=== PATIENT | male | born 1960 | race Caucasian/White ===

== ENCOUNTER 2023-01-03 11:00 | Outpatient (RCR) | payer BC, SELFPAY ==
[2022-12-13 09:48] VITALS: BP 142/97; PULSE 80; RESP 18; TEMP 36.3; BMI 28.7
--- NOTE | 2022-12-13 10:06 | HP.PCM_ITS ---
History of Present Illness Date of Service: 12/13/22 Chief Complaint: Left dorsal foot wound History of Wound: Patient is a 62-year-old male who presents with a left dorsal foot wound x2 just proximal to the base of the fourth and fifth digits. He states this wound has been recurrent for the past 6 months. Denies any trauma to the site. States that he thought a spider possibly bit him in the middle of the night. He was following with his primary care in [place] who prescribed Bactrim which did help, but the wound recurred and he was placed on a second course of Bactrim with noted improvement. When the wound recurred again he was referred to dermatology and placed on a 3-week course of Cipro with failure to progress in healing. He was then referred to the wound care center for further evaluation and placed on doxycycline 100 mg twice daily prior to evaluation in wound center. He states he is still currently taking the doxycycline. 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 Has switched the boots he wears with no improvement. Denies rubbing in shoe gear, walking barefoot, or snakebite. Denies N/V/F/chills. Denies further complaints today. ROS Constitutional Constitutional: Denies anorexia, chills or fever(s) Eyes Eyes: Denies blurry vision, change in vision or double vision ENT HEENT: Denies dysphagia, nasal congestion or sore throat Cardiovascular Cardiovascular: Denies chest pain, claudication or palpitations Respiratory/Chest Respiratory/Chest: Denies cough, shortness of breath at rest or wheezing Gastrointestinal Gastrointestinal: Denies abdominal pain, constipation, diarrhea, nausea or vomiting Genitourinary Genitourinary: Denies dysuria, hematuria, urinary frequency or urinary hesitancy Musculoskeletal Musculoskeletal: Denies joint pain, joint stiffness or joint swelling Integumentary Integumentary: Denies lesions, pruritus or rash Neurologic Neurologic: Denies dizziness, numbness or seizures Endocrine Endocrinology: Denies cold intolerance or heat intolerance Hematologic/Lymphatic Hematologic/Lymphatic: Denies easy bleeding or easy bruising Vital Signs Vital Signs Vital Signs: 12/13/22 09:48 Temperature 97.4 F L Temperature Source Temporal Pulse Rate 80 Respiratory Rate 18 Blood Pressure 142/97 H Blood Pressure Mean 112 Weight Weight: 80.739 kg Body Mass Index (BMI) 28.7 Physical Exam Const alert, oriented x3 and no apparent distress General Appearance: cooperative HEENT normocephalic Eyes General Eye: normal appearance of both eyes Neck General: normal visual inspection Lymph Lymphatic: no lymphadenopathy noted and no lymphedema noted Resp normal respiratory effort Cardio regular rate and regular rhythm Extremity normal capillary refill, no joint enlargement, no calf tenderness and no pedal edema Extremity Narrative: DP and PT pulses weakly palpable bilateral. Capillary fill time less than 5 seconds to the digits. Absence of hair growth to digits. Skin no rashes or lesions noted, skin turgor normal and no jaundice Wound Narrative: There are 2 small puncture type wounds to the distal forefoot of the left foot near the base of the fourth and fifth digits. There is some localized erythema about the wound margins. No purulent drainage, no malodor, no palpable fluctuance/bogginess, no visible abscess formation, no lymphangitic streaking. Neuro moves all extremities Debridement Note Debridement Note Wound debrided: Left dorsal foot x2 Laterality: Left Wound Grade/Stage: Lambert stage I Type of Debridement: Excisional debridement Anesthesia Used: 5% Lidocaine Gel Depth: Down to and including healthy tissue and in the subcutaneous layer Percentage of wound debrided: 100 Instrument Used: - (1 mm curette) Tissue Removed: Fibrous, devitalized subcutaneous, biofilm, slough Severity: Fat Layer Exposed Amount of bleeding with debridement: Mild Bleeding Controlled with: Compression and gauze Patient tolerated procedure: Patient tolerated procedure well Post-Debridement Measurements and Additional Note: Post-Debridement Measurements/Treatment CODI - Nurse 1 - General Ulcer Assessment Start: 12/13/22 09:45 Freq: Status: Active Protocol: MOOKIE Activity Type Activity Date Activity User E-sign Co-sign Detail Recorded Client Recorded Date Recorded By Document 12/13/22 09:48 AMANDA [id number] 12/13/22 10:00 AMANDA 12/13/22 09:48 - Today's Visit Information Type of service Initial Visit Arrival Mode Ambulatory Transfer Assistance None Patient Identification Verified (Name & Yes ) Patient Requires Transmission-Based No Precautions Safety Precautions NA Height and Weight Height 5 ft 6 in Weight 80.739 kg Weight in Pounds 178.0 lbs Body Mass Index (BMI) 28.7 BMI Classification Overweight BSA - Giovanni 1.90 Vital Signs Temperature (97.8 F-99.1 F) 97.4 F L Temperature Source Temporal Pulse Rate (60-100) 80 Respiratory Rate (12-18) 18 Blood Pressure (90/60-120/80) 142/97 H Blood Pressure Mean 112 History Since Last Visit- (Skip if this is Patient's initial visit) Have you changed medications since your No last visit? Any new allergies or adverse reactions No Had a fall/change in ADL's that may No increase risk of falls Signs or symptoms of abuse and/or No neglect since last visit Have you been in the hospital since your No last visit? Has dressing in place as prescribed No Has compression in place as prescribed No Has offloadiing in place as prescribed No Experienced any changes in pain level or No management Pain Scale: 0-10 Numeric Is Patient Pain Free? Yes WC - Nurse 1 - General Ulcer Measurement Start: 12/13/22 09:45 Freq: Status: Active Protocol: Activity Type Activity Date Activity User E-sign Co-sign Detail Recorded Client Recorded Date Recorded By Document 12/13/22 09:48 [address] [id number] 12/13/22 10:00 PL 12/13/22 09:48 Wound Center Nurse 1 #1 5th met head -Combined with other wound No -Current Size (cm) - Length 0.3 -Current Size (cm) - Width 0.3 -Current Size (cm) - Depth 0.1 -Total Square Cm 0.09 -Date of Last Picture (Recall this 12/13/22 field) -Photo Taken Yes -Epithelialization None Present -Tunneling No -Undermining/Tunneling No -Circular Undermining No -Classification - Thickness Full Thickness without Exposed Support Structure -Exudate Amt Medium -Exudate Type Serosanguineous -Granulation Amt None Present (0 %) -Granulation Quality [place] -Slough/Fibrin Yes -Necrosis Amt Large (67-100%) -Necrotic Tissue Type Adherent Slough -Texture (Jessica-wound Skin Appearance) No Abnormality -Moisture (Jessica-wound Skin Appearance) No Abnormality -Color (Jessica-wound Skin Appearance) No Abnormality -Temperature (Jessica-wound Skin No Abnormality Appearance) (Pt Warm) -Tenderness on Palpation (Jessica-wound No Skin Appearance) -Ulcer Cleansing Rinsed/ Irrigated with Saline -Foul Odor after Cleansing No -Anesthetic Used 5% Lidocaine Gel Assessment/Plan Assessment/Plan (1) Non-pressure chronic ulcer of other part of left foot with fat layer exposed: CODE(S): L97.522 - Non-pressure chronic ulcer of other part of left foot with fat layer exposed (2) Edema of left foot: CODE(S): R60.0 - Localized edema PLAN: Plan Patient seen and evaluated I reviewed his medical history and treatment course from his PCP. Has undergone 2 courses of Bactrim, 3-week treatment of Cipro, and currently on doxycycline. Wounds are noted to be recurrent to the dorsal left foot for the last 6 months. He denies pressure to the site, trauma, or known bites. Debridement was performed to both ulcerative sites as noted in the clinical panel above. Ulcerations located proximal to the base of the fourth and fifth toes. Proximal wound measures 0.2 cm x 0.2 cm x 0.5 cm in distal lateral measures 0.2 cm x 0.2 cm x 0.8 cm. Distal lateral does have a slight tunnel track at the 3 o'clock position of 0.4 cm. There is some slight erythema about the wounds. No expressible purulent drainage, no malodor, no visible abscess, no palpable fluctuance/bogginess, no lymphangitic streaking. Wounds dressed with Rekha and dry sterile dressing. He is to change the dressing daily. He was instructed to continue to finish out his oral doxycycline to completion. Discussed elevating the left lower extremity at times at rest to aid in edema control. Discussed proper diet to aid in wound healing with adequate protein intake. He does exhibit weakly palpable DP and PT pulses to bilateral lower extremities. I did discuss ordering venous studies today in addition to LEAS. These were ordered 12/13/2022, awaiting results. I do not feel vascular is impeding healing status. The following work up and care recommendations were made: Dressing: Rekha and dry sterile dressing, change daily Wash: Soap and water Tissue growth optimization: Rekha Offload: Dry dressing and to ensure site does not rub in shoe. Vascular: Weakly palpable DP and PT pulses. I did order LEAS and venous studies 12/13/2022. Edema: Slight nonpitting edema about the wound site discussed elevation of the leg to aid in edema control Infection: There is some minor erythema about the wound, currently on doxycycline will finish to completion. Pain: May take [id number] Tylenol as needed for discomfort Host factors: No known host factors I answered all the patient's questions. To return to the wound healing center in 1 week or call sooner if the patient has any questions or concerns.
[2022-12-20 11:00] VITALS: BP 108/73; PULSE 74; RESP 16; BMI 28.7
--- NOTE | 2022-12-20 11:09 | PCM.WC.PN ---
History of Present Illness Date of Service: 12/20/22 Chief Complaint: Left dorsal foot wound History of Wound: Patient is a 62-year-old male who presents with a left dorsal foot wound x2 just proximal to the base of the fourth and fifth digits. He states this wound has been recurrent for the past 6 months. Denies any trauma to the site. States that he thought a spider possibly bit him in the middle of the night. He was following with his primary care in [place] who prescribed Bactrim which did help, but the wound recurred and he was placed on a second course of Bactrim with noted improvement. When the wound recurred again he was referred to dermatology and placed on a 3-week course of Cipro with failure to progress in healing. He was then referred to the wound care center for further evaluation and placed on doxycycline 100 mg twice daily prior to evaluation in wound center. He states he is still currently taking the doxycycline. 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 Has switched the boots he wears with no improvement. Denies rubbing in shoe gear, walking barefoot, or snakebite. Denies N/V/F/chills. Denies further complaints today. Subjective Subjective This is a 62-year-old male who presents for follow-up to the wound care center for 2 dorsal left foot wounds at the base of the fourth and fifth toes. He states he has finished his oral antibiotic and is continue to dress the foot as instructed daily. He states that he feels the foot looks significantly better from his previous visit. Denies any constitutional symptoms. Denies further complaints today. Objective Data Objective Data Vital Signs: Vital Signs Temp Pulse Resp BP 97.4 F L 80 18 142/97 H 12/13/22 09:48 12/13/22 09:48 12/13/22 09:48 12/13/22 09:48 Weight: 80.739 kg Body Mass Index (BMI) 28.7 Physical Exam Const alert, oriented x3 and no apparent distress General Appearance: cooperative HEENT normocephalic Eyes General Eye: normal appearance of both eyes Neck General: normal visual inspection Lymph Lymphatic: no lymphadenopathy noted and no lymphedema noted Resp normal respiratory effort Cardio regular rate and regular rhythm Extremity normal capillary refill, no joint enlargement, no calf tenderness and no pedal edema Extremity Narrative: DP and PT pulses weakly palpable bilateral. Capillary fill time less than 5 seconds to the digits. Absence of hair growth to digits. Skin no rashes or lesions noted, skin turgor normal and no jaundice Wound Narrative: There are 2 small puncture type wounds to the distal forefoot of the left foot near the base of the fourth and fifth digits. There is some localized erythema about the wound margins -this is improving. No purulent drainage, no malodor, no palpable fluctuance/bogginess, no visible abscess formation, no lymphangitic streaking. Neuro moves all extremities Debridement Note Debridement Note Wound debrided: Left foot wound x2 Laterality: Left Wound Grade/Stage: Lambert stage I Type of Debridement: Excisional debridement Anesthesia Used: 5% Lidocaine Gel Depth: Down to and including healthy tissue and in the subcutaneous layer Percentage of wound debrided: 100 Instrument Used: - (1 mm curette) Tissue Removed: Fibrous, devitalized subcutaneous, biofilm, slough Severity: Fat Layer Exposed Amount of bleeding with debridement: Mild Bleeding Controlled with: Compression and gauze Patient tolerated procedure: Patient tolerated procedure well Post-Debridement Measurements and Additional Note: Post-Debridement Measurements/Treatment - Nurse 1 - General Ulcer Assessment Start: 12/13/22 09:45 Freq: Status: Active Protocol: MOOKIE Activity Type Activity Date Activity User E-sign Co-sign Detail Recorded Client Recorded Date Recorded By Document 12/13/22 09:48 AMANDA [id number] 12/13/22 10:00 AMANDA 12/13/22 09:48 - Today's Visit Information Type of service Initial Visit Arrival Mode Ambulatory Transfer Assistance None Patient Identification Verified (Name & Yes ) Patient Requires Transmission-Based No Precautions Safety Precautions NA Height and Weight Height 5 ft 6 in Weight 80.739 kg Weight in Pounds 178.0 lbs Body Mass Index (BMI) 28.7 BMI Classification Overweight BSA - Giovanni 1.90 Vital Signs Temperature (97.8 F-99.1 F) 97.4 F L Temperature Source Temporal Pulse Rate (60-100) 80 Respiratory Rate (12-18) 18 Blood Pressure (90/60-120/80) 142/97 H Blood Pressure Mean (mm Hg) 112 History Since Last Visit- (Skip if this is Patient's initial visit) Have you changed medications since your No last visit? Any new allergies or adverse reactions No Had a fall/change in ADL's that may No increase risk of falls Signs or symptoms of abuse and/or No neglect since last visit Have you been in the hospital since your No last visit? Has dressing in place as prescribed No Has compression in place as prescribed No Has offloadiing in place as prescribed No Experienced any changes in pain level or No management Pain Scale: 0-10 Numeric Is Patient Pain Free? Yes WC - Nurse 1 - General Ulcer Measurement Start: 12/13/22 09:45 Freq: Status: Active Protocol: Activity Type Activity Date Activity User E-sign Co-sign Detail Recorded Client Recorded Date Recorded By Document 12/13/22 09:48 PL [id number] 12/13/22 10:00 PL 12/13/22 09:48 Wound Center Nurse 1 #1 5th met head -Combined with other wound No -Current Size (cm) - Length 0.3 -Current Size (cm) - Width 0.3 -Current Size (cm) - Depth 0.1 -Total Square Cm 0.09 -Date of Last Picture (Recall this 12/13/22 field) -Photo Taken Yes -Epithelialization None Present -Tunneling No -Undermining/Tunneling No -Circular Undermining No -Classification - Thickness Full Thickness without Exposed Support Structure -Exudate Amt Medium -Exudate Type Serosanguineous -Granulation Amt None Present (0 %) -Granulation Quality [place] -Slough/Fibrin Yes -Necrosis Amt Large (67-100%) -Necrotic Tissue Type Adherent Slough -Texture (Jessica-wound Skin Appearance) No Abnormality -Moisture (Jessica-wound Skin Appearance) No Abnormality -Color (Jessica-wound Skin Appearance) No Abnormality -Temperature (Jessica-wound Skin No Abnormality Appearance) (Pt Warm) -Tenderness on Palpation (Jessica-wound No Skin Appearance) -Ulcer Cleansing Rinsed/ Irrigated with Saline -Foul Odor after Cleansing No -Anesthetic Used 5% Lidocaine Gel WC - Nurse 2 - General Ulcer CM Notes Start: 12/13/22 09:45 Freq: Status: Active Protocol: Activity Type Activity Date Activity User E-sign Co-sign Detail Recorded Client Recorded Date Recorded By Document 12/13/22 10:10 JASPAL [id number] 12/13/22 10:20 JASPAL 12/13/22 10:10 Wound Center Nurse 2 -Time 10:10 -Correct Patient Yes -Correct Side, Site, Position Yes -Correct Procedure Yes -Procedure Performed Yes -Type of Procedure Debridement -Clinical Debridement Subcutaneous -Tissue Removed Subcutaneous -Post Debridement (cm) - Length 0.2 -Post Debridement (cm) - Width 0.2 -Post Debridement (cm) - Depth 0.8 -Total Square (Post) (cm) 0.04 -Area of Debridement (cm) - Length 0.2 -Area of Debridement (cm) - Width 0.2 -Total Square (Area) (cm) 0.04 -Tunneling No -Undermining/Tunneling No -Circular Undermining No -Wound/Ulcer Outcome Not Healed -Ulcer Cleansing Rinsed/ Irrigated with Saline -Foul Odor after Cleansing No -Bioengineered Tissue No -Bleeding Controlled with Pressure -Treatment Response Procedure Tolerated Well -Offloading No -Debridement - Subq, 1st 20sq cm Yes Pain Scale: 0-10 Numeric Is Patient Pain Free? Yes - Nurse 3 - General Ulcer D/C NN Start: 12/13/22 09:45 Freq: Status: Active Protocol: Activity Type Activity Date Activity User E-sign Co-sign Detail Recorded Client Recorded Date Recorded By Document 12/13/22 10:29 [facility] [id number] 12/13/22 10:29 [facility] 12/13/22 10:29 Wound Care Center Nurse 3 #1 5th met head -Ulcer Cleansing Rinsed/ Irrigated with Saline -Foul Odor after Cleansing No -Primary Dressing Applied Promogran Rekha Matter -Primary Dressing Covered/Secured with Dry Gauze, Secured with Tape -Promogran Rekha Matter 1 Treatment Response Procedure Tolerated Well Pain Scale: 0-10 Numeric Is Patient Pain Free? Yes - Visit Discharge Discharge Condition Stable Ambulatory Status Ambulatory Transportation Private Auto Assessment/Plan Assessment/Plan (1) Non-pressure chronic ulcer of other part of left foot with fat layer exposed: CODE(S): L97.522 - Non-pressure chronic ulcer of other part of left foot with fat layer exposed (2) Edema of left foot: CODE(S): R60.0 - Localized edema PLAN: Plan Patient seen and evaluated I reviewed his medical history and treatment course from his PCP. Has undergone 2 courses of Bactrim, 3-week treatment of Cipro, and currently on doxycycline. Wounds are noted to be recurrent to the dorsal left foot for the last 6 months. He denies pressure to the site, trauma, or known bites. Debridement was performed to both ulcerative sites as noted in the clinical panel above. Ulcerations located proximal to the base of the fourth and fifth toes. Proximal wound measures 0.1 cm x 0.1 cm x 0.1 cm in distal lateral measures 0.1 cm x 0.1 cm x 0.1 cm. Erythema about the wounds has resolved today. No expressible purulent drainage, no malodor, no visible abscess, no palpable fluctuance/bogginess, no lymphangitic streaking. Wounds demonstrate improvement versus previous visit and reduction in size and granulating in. Wound is no longer draining and are nearly healed. Wounds dressed with hydrogel and dry sterile dressing. He is to change the dressing daily. He has finished his oral doxycycline to completion. Discussed elevating the left lower extremity at times at rest to aid in edema control. Discussed proper diet to aid in wound healing with adequate protein intake. He does exhibit weakly palpable DP and PT pulses to bilateral lower extremities. I did discuss ordering venous studies today in addition to LEAS. These were ordered 12/13/2022, awaiting results. I do not feel vascular is impeding healing status. The following work up and care recommendations were made: Dressing: Hydrogel and dry sterile dressing, change daily Wash: Soap and water Tissue growth optimization: Hydrogel Offload: Dry dressing and to ensure site does not rub in shoe. Vascular: Weakly palpable DP and PT pulses. I did order LEAS and venous studies 12/13/2022. Edema: Slight nonpitting edema about the wound site discussed elevation of the leg to aid in edema control Infection: There is some minor erythema about the wound, currently on doxycycline will finish to completion. Pain: May take [id number] Tylenol as needed for discomfort Host factors: No known host factors I answered all the patient's questions. To return to the wound healing center in 2 weeks or call sooner if the patient has any questions or concerns.
--- NOTE | 2022-12-20 12:44 | VDLE_ITS ---
Reason For Study: left foot ulcer RIGHT LEFT CFV is compressible, spontaneous, phasic, CFV is compressible, spontaneous, phasic, competent and demonstrates normal competent, and demonstrates normal augmentation. augmentation. FV is compressible, spontaneous, phasic, FV is compressible, spontaneous, phasic, competent and demonstrates normal competent and demonstrates normal augmentation. augmentation. POP V is compressible, spontaneous, phasic, POP V is compressible, spontaneous, phasic, competent and demonstrates normal competent and demonstrates normal augmentation. augmentation. T/P Trunk is compressible. T/P Trunk is compressible. PTV is compressible. PTV is compressible. RT PerV is compressible. LT PerV is compressible. SFJ is competent and measures .75 cm. SFJ is competent and measures .64 cm. GSV proximal thigh measures .39 x .4 cm. GSV proximal thigh measures .37 x .37 cm. GSV at knee measures .31 x .35 cm. GSV at knee measures .31 x .32 cm. GSV INCOMPETENT throughout for greater than GSV is competent throughout. 0.5 seconds. SSV proximal calf is competent and SSV proximal calf is competent and measures .24 x .29 cm. measures .28 x .35 cm. ASV proximal thigh is INCOMPETENT for greater than 0.5 seconds and measures .39 x .42 cm. Procedure This is a venous duplex using B-mode, color flow and spectral Doppler. Exam performed in department. The exam was diagnostic. VL/Venous Duplex US - Johnnie Extrem Interpretation Summary Deep veins of the lower extremities are bilaterally patent and compressible seg mentally. There is no evidence of deep vein thrombosis on either side. Valvular competence appears in tact within the proximal deep venous systems bilaterally. The great saphenous veins appear bila terally patent and compressible segmentally. Sapheno-femoral junctions are bilaterally competent . The right great saphenous vein appears segmentally incompetent. The left great saphenous vein a ppears segmentally competent. Small saphenous veins are patent and competent bilaterally. The acce ssory saphenous vein in the right proximal thigh is incompetent. Ordering Physician: Emilio Ortiz Referring Physician: Thanh Estevez Performed By: Macario Casey RVT
--- NOTE | 2022-12-20 12:44 | ART_ITS ---
Reason For Study: left foot ulcer Procedure A bilateral lower extremity continuous wave Doppler with analog waveform analysis,segmental pressures,and ankle brachial indexes without exercise. Left Segmental Pressures Left brachial= 114mmHg. Left posterior tibial artery = 141mmHg. Left dorsalis pedis artery = 135mmHg. Left digit = 99 mmHg. The left dorsalis pedis waveforms are triphasic. The left posterior tibial artery waveforms are triphasic. Right Segmental Pressures Right brachial= 114mmHg. Right posterior tibial artery = 150mmHg. Right dorsalis pedis artery = 125mmHg. Right digit = 98 mmHg. The right dorsalis pedis waveforms are triphasic. The right posterior tibial artery waveforms are triphasic. Indices The right ankle brachial index by the posterior tibial artery is 1.32. The right ankle brachial index by the dorsalis pedis is 1.1. The right digital-brachial index is .86. The left ankle brachial index by the posterior tibial artery is 1.24. The left ankle brachial index by the dorsalis pedis is 1.18. The left digital-brachial index is .99. VL/Lower Ext Art Exam w/o Exercis Interpretation Summary Triphasic Doppler waveforms are noted at ankle level bilaterally. Pulse-volume recordings appear satisfactory at all levels bilaterally. Resting ankle-brachial indices are norm al bilaterally. Digital-brachial indices are normal bilaterally. There is no evidence of significant arterial occlusive disease in the lower ext remities bilaterally. Ordering Physician: Emilio Ortiz Referring Physician: Thanh Estevez Performed By: Macario Casey, RVT
--- NOTE | 2023-01-03 11:06 | PN.PCM_ITS ---
History of Present Illness Date of Service: 01/03/23 Chief Complaint: Left dorsal foot wound History of Wound: Patient is a 62-year-old male who presents with a left dorsal foot wound x2 just proximal to the base of the fourth and fifth digits. He states this wound has been recurrent for the past 6 months. Denies any trauma to the site. States that he thought a spider possibly bit him in the middle of the night. He was following with his primary care in [place] who prescribed Bactrim which did help, but the wound recurred and he was placed on a second course of Bactrim with noted improvement. When the wound recurred again he was referred to dermatology and placed on a 3-week course of Cipro with failure to progress in healing. He was then referred to the wound care center for further evaluation and placed on doxycycline 100 mg twice daily prior to evaluation in wound center. He states he is still currently taking the doxycycline. 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 Has switched the boots he wears with no improvement. Denies rubbing in shoe gear, walking barefoot, or snakebite. Denies N/V/F/chills. Denies further complaints today. Subjective Subjective This is a 62-year-old male who presents for follow-up to the wound care center for 2 dorsal left foot wounds at the base of the fourth and fifth toes.? He states he has finished his oral antibiotic and is continue to dress the foot as instructed daily.? He states that he feels the foot continues to look better from his previous visit.? Denies any constitutional symptoms.? Denies further complaints today. Objective Data Objective Data Vital Signs: Vital Signs Temp Pulse Resp BP O2 Del Method 97.4 F L 74 16 108/73 Room Air 12/13/22 09:48 12/20/22 11:00 12/20/22 11:00 12/20/22 11:00 12/20/22 11:00 Oxygen Delivery Method Room Air Weight: 80.739 kg Body Mass Index (BMI) 28.7 Physical Exam Const alert, oriented x3 and no apparent distress General Appearance: cooperative HEENT normocephalic Eyes General Eye: normal appearance of both eyes Neck General: normal visual inspection Lymph Lymphatic: no lymphadenopathy noted and no lymphedema noted Resp normal respiratory effort Cardio regular rate and regular rhythm Extremity normal capillary refill, no joint enlargement, no calf tenderness and no pedal edema Extremity Narrative: DP and PT pulses weakly palpable bilateral. Capillary fill time less than 5 seconds to the digits. Absence of hair growth to digits. Skin no rashes or lesions noted, skin turgor normal and no jaundice Wound Narrative: There are 2 small puncture type wounds to the distal forefoot of the left foot near the base of the fourth and fifth digits. There is some localized erythema about the wound margins -this is improving. No purulent drainage, no malodor, no palpable fluctuance/bogginess, no visible abscess formation, no lymphangitic streaking. Neuro moves all extremities Debridement Note Debridement Note No debridement was completed: No debridement was completed today Post-Debridement Measurements and Additional Note: Post-Debridement Measurements/Treatment - Nurse 1 - General Ulcer Assessment Start: 12/13/22 09:45 Freq: Status: Active Protocol: MOOKIE Activity Type Activity Date Activity User E-sign Co-sign Detail Recorded Client Recorded Date Recorded By Document 12/13/22 09:48 [id number] 12/13/22 10:00 PL Document 12/20/22 11:00 [facility] [id number] 12/20/22 11:10 [facility] 12/13/22 12/20/22 09:48 11:00 - Today's Visit Information Type of service Initial Visit Follow-up Visit (Physician/AIRLINE TICKET AGENT ) Arrival Mode Ambulatory Ambulatory Transfer Assistance None None Patient Identification Verified (Name & Yes Yes ) Patient Requires Transmission-Based No No Precautions Safety Precautions NA Height and Weight Height 5 ft 6 in Weight 80.739 kg Weight in Pounds 178.0 lbs Body Mass Index (BMI) 28.7 28.7 BMI Classification Overweight Overweight BSA - Giovanni 1.90 Vital Signs Temperature (97.8 F-99.1 F) 97.4 F L Temperature Source Temporal Pulse Rate (60-100) 80 74 Pulse Location Monitor Respiratory Rate (12-18) 18 16 Respiratory rate source Observation Oxygen Delivery Method Room Air Blood Pressure (90/60-120/80) 142/97 H 108/73 Blood Pressure Mean (mm Hg) 112 84 Source Monitor Position Sitting Blood Pressure Location Left Arm History Since Last Visit- (Skip if this is Patient's initial visit) Have you changed medications since your No No last visit? Any new allergies or adverse reactions No No Had a fall/change in ADL's that may No No increase risk of falls Signs or symptoms of abuse and/or No No neglect since last visit Have you been in the hospital since your No No last visit? Has dressing in place as prescribed No No Has compression in place as prescribed No N/A Has offloadiing in place as prescribed No N/A Experienced any changes in pain level or No No management Left Footwear Regular Shoe Right Footwear Regular Shoe Pain Scale: 0-10 Numeric Is Patient Pain Free? Yes Yes WC - Nurse 1 - General Ulcer Measurement Start: 12/13/22 09:45 Freq: Status: Active Protocol: Activity Type Activity Date Activity User E-sign Co-sign Detail Recorded Client Recorded Date Recorded By Document 12/13/22 09:48 PL [id number] 12/13/22 10:00 PL Document 12/20/22 11:00 [facility] [id number] 12/20/22 11:10 BM 12/13/22 12/20/22 09:48 11:00 Wound Center Nurse 1 #1 5th met head -Combined with other wound No No -Current Size (cm) - Length 0.3 0.1 -Current Size (cm) - Width 0.3 0.1 -Current Size (cm) - Depth 0.1 0.1 -Total Square Cm 0.09 0.01 -Date of Last Picture (Recall this 12/13/22 12/20/22 field) -Photo Taken Yes Yes -Epithelialization None Present Large 67-100% -Tunneling No No -Undermining/Tunneling No No -Circular Undermining No No -Classification - Thickness Full Thickness without Exposed Support Structure -Exudate Amt Medium None Present -Exudate Type Serosanguineous -Granulation Amt None Present (0 %) -Granulation Quality [place] -Slough/Fibrin Yes -Necrosis Amt Large (67-100%) -Necrotic Tissue Type Adherent Slough -Texture (Jessica-wound Skin Appearance) No Abnormality Assessed, Scarring -Moisture (Jessica-wound Skin Appearance) No Abnormality Assessed -Color (Jessica-wound Skin Appearance) No Abnormality Assessed -Temperature (Jessica-wound Skin No Abnormality No Abnormality Appearance) (Pt Warm) (Pt Warm) -Tenderness on Palpation (Jessica-wound No No Skin Appearance) -Ulcer Cleansing Rinsed/ Soap and Water Irrigated with Saline -Foul Odor after Cleansing No No -Anesthetic Used 5% Lidocaine 5% Lidocaine Gel Gel WC - Nurse 2 - General Ulcer CM Notes Start: 12/13/22 09:45 Freq: Status: Active Protocol: Activity Type Activity Date Activity User E-sign Co-sign Detail Recorded Client Recorded Date Recorded By Document 12/13/22 10:10 [id number] 12/13/22 10:20 Document 12/20/22 12:13 PL [id number] 12/20/22 12:13 PL 12/13/22 12/20/22 10:10 12:13 Wound Center Nurse 2 #1 5th met head -Time 10:10 -Correct Patient Yes -Correct Side, Site, Position Yes -Correct Procedure Yes -Procedure Performed Yes No -Type of Procedure Debridement -Clinical Debridement Subcutaneous -Tissue Removed Subcutaneous -Post Debridement (cm) - Length 0.2 -Post Debridement (cm) - Width 0.2 -Post Debridement (cm) - Depth 0.8 -Total Square (Post) (cm) 0.04 -Area of Debridement (cm) - Length 0.2 -Area of Debridement (cm) - Width 0.2 -Total Square (Area) (cm) 0.04 -Tunneling No -Undermining/Tunneling No -Circular Undermining No -Wound/Ulcer Outcome Not Healed Healed- Epithelialized -Ulcer Cleansing Rinsed/ Irrigated with Saline -Foul Odor after Cleansing No -Bioengineered Tissue No -Bleeding Controlled with Pressure -Treatment Response Procedure Tolerated Well -Offloading No -Debridement - Subq, 1st 20sq cm Yes Pain Scale: 0-10 Numeric Is Patient Pain Free? Yes Yes - Nurse 3 - General Ulcer D/C NN Start: 12/13/22 09:45 Freq: Status: Active Protocol: Activity Type Activity Date Activity User E-sign Co-sign Detail Recorded Client Recorded Date Recorded By Document 12/13/22 10:29 [facility] [id number] 12/13/22 10:29 [facility] Document 12/20/22 11:35 [facility] [id number] 12/20/22 11:36 [facility] 12/13/22 12/20/22 10:29 11:35 Wound Care Center Nurse 3 #1 5th met head -Ulcer Cleansing Rinsed/ Rinsed/ Irrigated with Irrigated with Saline Saline -Foul Odor after Cleansing No No -Primary Dressing Applied Promogran C Hydrogel ($) Rekha Matter -Primary Dressing Covered/Secured with Dry Gauze, Dry Gauze, Secured with Secured with Tape Tape -Promogran Rekha Matter 1 Treatment Response Procedure Procedure Tolerated Well Tolerated Well Pain Scale: 0-10 Numeric Is Patient Pain Free? 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 Has undergone 2 courses of Bactrim, 3-week treatment of Cipro, and currently on doxycycline. Wounds are noted to be recurrent to the dorsal left foot for the last 6 months. He denies pressure to the site, trauma, or known bites. Debridement was performed to both ulcerative sites as noted in the clinical panel above. Ulcerations located proximal to the base of the fourth and fifth toes. Proximal wound measures 0.1 cm x 0.1 cm x 0.1 cm in distal lateral measures 0.1 cm x 0.1 cm x 0.1 cm. There is some epithelialization across the sites today. No expressible purulent drainage, no malodor, no visible abscess, no palpable fluctuance/bogginess, no lymphangitic streaking. Wounds demonstrate improvement versus previous visit and reduction in size and granulating in with some epithelialization. Wound is no longer draining and are nearly healed. Wounds dressed with dry sterile dressing. He is to change the dressing daily. He has finished his oral doxycycline to completion. Discussed elevating the left lower extremity at times at rest to aid in edema control. Discussed proper diet to aid in wound healing with adequate protein intake. He does exhibit weakly palpable DP and PT pulses to bilateral lower extremities. Venous studies and LEAS were performed 12/20/2022.venous studies demonstrate deep veins of the lower extremities bilaterally patent and compressible segmentally with no evidence of DVT. Great saphenous and small saphenous competent bilaterally. The accessory saphenous vein in the right proximal thigh is incompetent. Arterial studies demonstrate triphasic Doppler waveforms noted at the ankle level bilaterally. PV are satisfactory in all levels bilaterally. Resting KORTNEY indices normal bilaterally. Digital brachial indices normal bilaterally. No evidence of arterial occlusive disease in the lower extremities bilaterally. The following work up and care recommendations were made: Dressing: dry sterile dressing, change daily Wash: Soap and water Tissue growth optimization: None Offload: Dry dressing and to ensure site does not rub in shoe. Vascular: Weakly palpable DP and PT pulses. LEAS and venous studies 12/20/2022. No evidence of arterial occlusive disease bilaterally. Edema: Slight nonpitting edema about the wound site discussed elevation of the leg to aid in edema control Infection: No signs of infection. Pain: May take [id number] Tylenol as needed for discomfort Host factors: No known host factors I answered all the patient's questions. To return to the wound healing center in 2 weeks or call sooner if the patient has any questions or concerns.
== END 2023-01-09 23:59 | disposition home or self-care (01) ==
LOC: WC 11:00
PROVIDERS: PCP Family Medicine; Referring Provider Family Medicine; Visit Provider Student in an Organized Health Care Education/Training Program
DX: L97.522 Non-pressure chronic ulcer of other part of left foot with fat layer exposed (principal); R60.0 Localized edema
CPT/HCPCS: 11042; 93923; 93970; 99213; 99214; G0463

== ENCOUNTER 2023-01-31 10:45 | Outpatient (RCR) | payer BC, SELFPAY ==
[2023-01-10 00:10] VITALS: BP 108/73; PULSE 74; RESP 16; TEMP 36.3; BMI 28.7
--- NOTE | 2023-01-17 10:55 | PCM.WC.PN ---
History of Present Illness Date of Service: 01/17/23 Chief Complaint: Left dorsal foot wound History of Wound: Patient is a 62-year-old male who presents with a left dorsal foot wound x2 just proximal to the base of the fourth and fifth digits. He states this wound has been recurrent for the past 6 months. Denies any trauma to the site. States that he thought a spider possibly bit him in the middle of the night. He was following with his primary care in [place] who prescribed Bactrim which did help, but the wound recurred and he was placed on a second course of Bactrim with noted improvement. When the wound recurred again he was referred to dermatology and placed on a 3-week course of Cipro with failure to progress in healing. He was then referred to the wound care center for further evaluation and placed on doxycycline 100 mg twice daily prior to evaluation in wound center. He states he is still currently taking the doxycycline. 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 Has switched the boots he wears with no improvement. Denies rubbing in shoe gear, walking barefoot, or snakebite. Denies N/V/F/chills. Denies further complaints today. Subjective Subjective This is a 62-year-old male who presents for follow-up to the wound care center for 2 dorsal left foot wounds at the base of the fourth and fifth toes.? He states continues to dress the foot as instructed daily.? He states that he feels the foot continues to look better from his previous visit.? Denies any constitutional symptoms.? Denies further complaints today. Objective Data Objective Data Vital Signs: Vital Signs Temp Pulse Resp BP 97.4 F L 74 16 108/73 01/10/23 00:10 01/10/23 00:10 01/10/23 00:10 01/10/23 00:10 Weight: 80.739 kg Body Mass Index (BMI) 28.7 Physical Exam Const alert, oriented x3 and no apparent distress General Appearance: cooperative HEENT normocephalic Eyes General Eye: normal appearance of both eyes Neck General: normal visual inspection Lymph Lymphatic: no lymphadenopathy noted and no lymphedema noted Resp normal respiratory effort Cardio regular rate and regular rhythm Extremity normal capillary refill, no joint enlargement, no calf tenderness and no pedal edema Extremity Narrative: DP and PT pulses weakly palpable bilateral.? Capillary fill time less than 5 seconds to the digits.? Absence of hair growth to digits. Skin no rashes or lesions noted, skin turgor normal and no jaundice Wound Narrative: There are 2 small puncture type wounds to the distal forefoot of the left foot near the base of the fourth and fifth digits.? There is some localized erythema about the wound margins -this is improving.? No purulent drainage, no malodor, no palpable fluctuance/bogginess, no visible abscess formation, no lymphangitic streaking. Neuro moves all extremities Debridement Note Debridement Note No debridement was completed: No debridement was completed today Assessment/Plan Assessment/Plan (1) Edema of left foot: CODE(S): R60.0 - Localized edema (2) Non-pressure chronic ulcer of other part of left foot with fat layer exposed: CODE(S): L97.522 - Non-pressure chronic ulcer of other part of left foot with fat layer exposed PLAN: Plan Patient seen and evaluated I reviewed his medical history and treatment course from his PCP.? Has undergone 2 courses of Bactrim, 3-week treatment of Cipro, and currently on doxycycline.? Wounds are noted to be recurrent to the dorsal left foot for the last 6 months.? He denies pressure to the site, trauma, or known bites. No Debridement was performed to ulcerative site as noted in the clinical panel above.? Ulcerations located proximal to the base of the fourth and fifth toes.? Proximal wound measures 0.1 cm x 0.1 cm x 0.1 cm in distal lateral is healed.? There is some epithelialization across the proximal site today.? No expressible purulent drainage, no malodor, no visible abscess, no palpable fluctuance/bogginess, no lymphangitic streaking. Wounds demonstrate improvement versus previous visit and reduction in size and granulating in with some epithelialization.? Wound is no longer draining and are nearly healed. Wound dressed with hydrogel and dry sterile dressing.? He is to change the dressing daily.? He has finished his oral doxycycline to completion. Discussed elevating the left lower extremity at times at rest to aid in edema control. Discussed proper diet to aid in wound healing with adequate protein intake. He does exhibit weakly palpable DP and PT pulses to bilateral lower extremities.? Venous studies and LEAS were performed 12/20/2022.venous studies demonstrate deep veins of the lower extremities bilaterally patent and compressible segmentally with no evidence of DVT.? Great saphenous and small saphenous competent bilaterally.? The accessory saphenous vein in the right proximal thigh is incompetent.? Arterial studies demonstrate triphasic Doppler waveforms noted at the ankle level bilaterally.? PV are satisfactory in all levels bilaterally.? Resting KORTNEY indices normal bilaterally.? Digital brachial indices normal bilaterally.? No evidence of arterial occlusive disease in the lower extremities bilaterally. The following work up and care recommendations were made: Dressing: Hydrogel and dry sterile dressing, change daily Wash: Soap and water Tissue growth optimization: Hydrogel Offload: Dry dressing and to ensure site does not rub in shoe. Vascular: Weakly palpable DP and PT pulses. LEAS and venous studies 12/20/2022.? No evidence of arterial occlusive disease bilaterally. Edema: Slight nonpitting edema about the wound site discussed elevation of the leg to aid in edema control Infection: No signs of infection. Pain: May take [id number] Tylenol as needed for discomfort Host factors: No known host factors ? I answered all the patient's questions.? To return to the wound healing center in 2 weeks or call sooner if the patient has any questions or concerns.
[2023-01-17 11:00] VITALS: BP 155/54; PULSE 74; RESP 18; TEMP 36.1; BMI 28.7
--- NOTE | 2023-01-31 11:11 | PN.PCM_ITS ---
History of Present Illness Date of Service: 01/31/23 Chief Complaint: Left dorsal foot wound History of Wound: Patient is a 62-year-old male who presents with a left dorsal foot wound x2 just proximal to the base of the fourth and fifth digits. He states this wound has been recurrent for the past 6 months. Denies any trauma to the site. States that he thought a spider possibly bit him in the middle of the night. He was following with his primary care in [place] who prescribed Bactrim which did help, but the wound recurred and he was placed on a second course of Bactrim with noted improvement. When the wound recurred again he was referred to dermatology and placed on a 3-week course of Cipro with failure to progress in healing. He was then referred to the wound care center for further evaluation and placed on doxycycline 100 mg twice daily prior to evaluation in wound center. He states he is still currently taking the doxycycline. 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 Has switched the boots he wears with no improvement. Denies rubbing in shoe gear, walking barefoot, or snakebite. Denies N/V/F/chills. Denies further complaints today. Subjective Subjective This is a 62-year-old male who presents for follow-up to the wound care center for 2 dorsal left foot wounds at the base of the fourth and fifth toes.? He states continues to dress the foot daily for protection of the sensitive skin.? He believes his wounds have healed and denies drainage. Denies any constitutional symptoms.? Denies further complaints today. Objective Data Objective Data Vital Signs: Vital Signs Temp Pulse Resp BP 97.0 F L 74 18 155/54 H 01/17/23 11:00 01/17/23 11:00 01/17/23 11:00 01/17/23 11:00 Weight: 80.739 kg Body Mass Index (BMI) 28.7 Physical Exam Const alert, oriented x3 and no apparent distress General Appearance: cooperative HEENT normocephalic Eyes General Eye: normal appearance of both eyes Neck General: normal visual inspection Lymph Lymphatic: no lymphadenopathy noted and no lymphedema noted Resp normal respiratory effort Cardio regular rate and regular rhythm Extremity normal capillary refill, no joint enlargement, no calf tenderness and no pedal edema Extremity Narrative: DP and PT pulses weakly palpable bilateral.? Capillary fill time less than 5 seconds to the digits.? Absence of hair growth to digits. Skin no rashes or lesions noted, skin turgor normal and no jaundice Wound Narrative: There are 2 small puncture type wounds to the distal forefoot of the left foot near the base of the fourth and fifth digits with epithelialization.? Wounds hav e healed. No signs of infection. 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 ) Arrival Mode Ambulatory Patient Identification Verified (Name & Yes ) Patient Requires Transmission-Based No Precautions Height and Weight Body Mass Index (BMI) 28.7 BMI Classification Overweight Vital Signs Temperature (97.8 F-99.1 F) 97.0 F L Temperature Source Temporal Pulse Rate (60-100) 74 Pulse Location Monitor Respiratory Rate (12-18) 18 Respiratory rate source Observation Blood Pressure (90/60-120/80) 155/54 H Blood Pressure Mean (mm Hg) 87 Source Monitor Position Semi-Fowlers Blood Pressure Location Right Arm History Since Last Visit- (Skip if this is Patient's initial visit) Have you changed medications since your No last visit? Any new allergies or adverse reactions No Had a fall/change in ADL's that may No increase risk of falls Signs or symptoms of abuse and/or No neglect since last visit Have you been in the hospital since your No last visit? Has dressing in place as prescribed Yes Has compression in place as prescribed N/A Has offloadiing in place as prescribed N/A Experienced any changes in pain level or No management Left Footwear Regular Shoe Right Footwear Regular Shoe Pain Scale: 0-10 Numeric Is Patient Pain Free? Yes - Nurse 1 - General Ulcer Measurement Start: 01/17/23 11:00 Freq: Status: Active Protocol: Activity Type Activity Date Activity User E-sign Co-sign Detail Recorded Client Recorded Date Recorded By Document 01/17/23 11:00 [id number] 01/17/23 11:08 01/17/23 11:00 Wound Center Nurse 1 #1 5th met head -Combined with other wound No -Current Size (cm) - Length 0.2 -Current Size (cm) - Width 0.2 -Current Size (cm) - Depth 0.3 -Total Square Cm 0.04 -Photo Taken Yes -Epithelialization Medium 34-66% -Tunneling No -Undermining/Tunneling No -Circular Undermining No -Exudate Amt Small -Exudate Type Sanguineous -Wound Margin Flat & Intact -Granulation Amt Medium (34-66%) -Granulation Quality Red -Slough/Fibrin Yes -Necrosis Amt Small (1-33%) -Necrotic Tissue Type Adherent Slough -Structure Exposed N/A -Texture (Jessica-wound Skin Appearance) Assessed -Moisture (Jesscia-wound Skin Appearance) Assessed,Dry/ Scaly -Color (Jessica-wound Skin Appearance) Assessed -Temperature (Jessica-wound Skin No Abnormality Appearance) (Pt Warm) -Tenderness on Palpation (Jessica-wound No Skin Appearance) -Ulcer Cleansing Rinsed/ Irrigated with Saline -Foul Odor after Cleansing No -Anesthetic Used 5% Lidocaine Gel Lower Limb Edema Present NA WC - Nurse 3 - General Ulcer D/C NN Start: 01/17/23 11:00 Freq: Status: Active Protocol: Activity Type Activity Date Activity User E-sign Co-sign Detail Recorded Client Recorded Date Recorded By Document 01/17/23 11:36 [email or web address] [id number] 01/17/23 11:37 REYMUNDO 01/17/23 11:36 Wound Care Center Nurse 3 #1 5th met head -Ulcer Cleansing Rinsed/ Irrigated with Saline -Foul Odor after Cleansing No -Negative Pressure Wound Therapy N/A -Primary Dressing Applied C Hydrogel ($) -Other Dressing bandaid Pain Scale: 0-10 Numeric Is Patient Pain Free? Yes WC - Visit Discharge Discharge Condition Stable Ambulatory Status Ambulatory Transportation Private Auto Medication Reconcilliation completed & Yes provided to patient/care provider Clinical Summary of Care Provided Yes Assessment/Plan Assessment/Plan (1) Edema of left foot: CODE(S): R60.0 - Localized edema (2) Non-pressure chronic ulcer of other part of left foot with fat layer exposed: CODE(S): L97.522 - Non-pressure chronic ulcer of other part of left foot with fat layer exposed PLAN: Plan Patient seen and evaluated I reviewed his medical history and treatment course from his PCP.? Has undergone 2 courses of Bactrim, 3-week treatment of Cipro, and currently on doxycycline.? Wounds are noted to be recurrent to the dorsal left foot for the last 6 months.? He denies pressure to the site, trauma, or known bites. No Debridement was performed to ulcerative site as noted in the clinical panel above.? Ulcerations located proximal to the base of the fourth and fifth toes.? Proximal wound has healed today and distal lateral remains healed.? There is epithelialization across the both sites today.? No signs of infection. Discussed continuing to dress the fragile skin with Band-Aid for the next 7 to 10 days.? He is to change the dressing daily.? Discussed elevating the left lower extremity at times at rest to aid in edema control. Discussed proper diet to aid in wound healing with adequate protein intake. He does exhibit weakly palpable DP and PT pulses to bilateral lower extremities.? Venous studies and LEAS were performed 12/20/2022.venous studies demonstrate deep veins of the lower extremities bilaterally patent and compressible segmentally with no evidence of DVT.? Great saphenous and small saphenous competent bilaterally.? The accessory saphenous vein in the right proximal thigh is incompetent.? Arterial studies demonstrate triphasic Doppler waveforms noted at the ankle level bilaterally.? PV are satisfactory in all levels bilaterally.? Resting KORTNEY indices normal bilaterally.? Digital brachial indices normal bilaterally.? No evidence of arterial occlusive disease in the lower extremities bilaterally. The following work up and care recommendations were made: Dressing: Band-Aid next 7 to 10 days to protect fragile skin Wash: Soap and water Tissue growth optimization: None Offload: Dry dressing and to ensure site does not rub in shoe. Vascular: Weakly palpable DP and PT pulses. LEAS and venous studies 12/20/2022.? No evidence of arterial occlusive disease bilaterally. Edema: Slight nonpitting edema about the wound site discussed elevation of the leg to aid in edema control Infection: No signs of infection. Pain: May take [id number] Tylenol as needed for discomfort Host factors: No known host factors ? Given patient's healed status he is being discharged from the wound care center today. I answered all the patient's questions.? To return to the wound healing center as needed or call sooner if the patient has any questions or concerns.
== END 2023-01-31 15:02 | disposition home or self-care (01) ==
LOC: WC 10:45
PROVIDERS: PCP Family Medicine; Referring Provider Family Medicine; Visit Provider Student in an Organized Health Care Education/Training Program
DX: L97.522 Non-pressure chronic ulcer of other part of left foot with fat layer exposed (principal); R60.0 Localized edema
CPT/HCPCS: 99213; G0463